=== PATIENT | female | born 1940 | race Caucasian/White ===

== ENCOUNTER → 2016-10-16 | Outpatient (CLI) | payer BC, MEDICARE ==
[2016-10-16 18:19] LABS: Blood Urea Nitrogen 10 mg/dL (7-17); Non-African American GFR(MDRD) >60 (>60 ml/min/1.73 sqM)
--- NOTE | 2016-10-16 18:57 | CT ---
EXAMINATION TYPE: CT chest w con DATE OF EXAM: 10/16/2016 6:48 PM COMPARISON: 12/18/2015 HISTORY: Chest pain x 2 months. Follow-up thoracic aortic aneurysm. CT DLP: 266.10 mGycm Automated exposure control for dose reduction was used. CONTRAST: CT scan of the chest is performed with IV Contrast, patient injected with 100 mL of Omnipaque 300. FINDINGS: The lungs are clear of infiltrate. There is no evidence of a pulmonary mass. There is no pleural effu mau. There is no pericardial effusion. The heart size is normal. There are no hilar masses. There is no mediastinal adenopathy. 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 I see no filling defects in the pulmonary arteries. The bony thorax appears intact. There is spurring in the thoracic spine. IMPRESSION: 4.1 cm aneurysm of the ascending aorta. No evidence of dissection. Aneurysm has increase d by 2 mm since last exam. There is not a significant change.
== END | disposition home or self-care (01) ==
LOC: RADCTMAIN 17:37
PROVIDERS: ATTEND Family Medicine
DX: I71.2 Thoracic aortic aneurysm, without rupture (principal)
CPT/HCPCS: 82565; 84520; 71260; 36415; Q9967

== ENCOUNTER → 2017-02-11 | Outpatient (CLI) | payer MEDICARE ==
--- NOTE | 2017-02-12 22:35 | ECHOF ---
Referral Reason:R53.83 oterh fatigue R60.9 edema MEASUREMENTS -------- HEIGHT: 170.2 cm WEIGHT: 77.6 kg BP: RVIDd: 2.9 cm (< 3.3) IVSd: 1.4 cm (0.6 - 1.1) LVIDd: 3.4 cm (3.9 - 5.3) LVPWd: 1.2 cm (0.6 - 1.1) IVSs: 1.3 cm LVIDs: 2.1 cm LVPWs: 0.8 cm LA Diam: 3.7 cm (2.7 - 3.8) LAESV Index (A-L): 22.00 ml/m MV EXCURSION: 16.312 mm (> 18.000) MV EF SLOPE: 88 mm/s (70 - 150) EPSS: 0.9 cm MV E Trevor: 0.50 m/s MV DecT: 292 ms MV A Trevor: 0.72 m/s MV E/A Ratio: 0.69 RAP: 5.00 mmHg RVSP: 12.37 mmHg FINDINGS -------- Sinus rhythm. This was a technically adequate study. The left ventricular size is normal. There is moderate concentric left ventricular hypertrophy. Overall left ventricular systolic function is low-normal with, an EF between 50 - 55 %. The right ventricle is normal in size. Normal LA size by volume 22+/-6 ml/m2. The right atrial size is normal. There is mild aortic valve sclerosis. There is mild aortic regurgitation. The mitral valve is normal. Mild mitral regurgitation is present. Mild tricuspid regurgitation present. There is no evidence of pulmonary hypertension. The right ventricular systolic pressure, as measured by Doppler, is 12.37mmHg. Trace/mild (physiologic) pulmonic regurgitation. The aortic root size is normal. There is no pericardial effusion. CONCLUSIONS -------- 1. Sinus rhythm. 2. There is no evidence of pulmonary hypertension. 3. Trace/mild (physiologic) pulmonic regurgitation. 4. The aortic root size is normal. 5. There is no pericardial effusion. 6. This was a technically adequate study. 7. There is moderate concentric left ventricular hypertrophy. 8. Overall left ventricular systolic function is low-normal with, an EF between 50 - 55 %. 9. Normal LA size by volume 22+/-6 ml/m2. 10. There is mild aortic valve sclerosis. 11. There is mild aortic regurgitation. 12. Mild mitral regurgitation is present. 13. Mild tricuspid regurgitation present. BATTERY STACKER: Maria Elena Oreilly RDCS
--- NOTE | 2017-02-17 10:03 | P.ARTDOP ---
Arterial Doppler LOWER EXTREMITY ARTERIAL DOPPLER: DATE OF SERVICE: 02/11/2017 Reason for study: Lower extremity edema. Doppler waveforms: Multiphasic bilaterally throughout. Pulse volume recording: Normal configuration. Pressure gradients: None. Ankle-brachial indices: Greater than 1 bilaterally. Toe pressures: 106 on the right, 113 on the left Impression: Normal lower extremity arterial Doppler.
== END | disposition home or self-care (01) ==
LOC: RADECHMAIN 13:50
PROVIDERS: ATTEND Family Medicine
DX: I08.3 Combined rheumatic disorders of mitral, aortic and tricuspid valves (principal); I73.9 Peripheral vascular disease, unspecified
CPT/HCPCS: 93306; 93923

== ENCOUNTER → 2017-09-02 | Outpatient (CLI) | payer MEDICARE ==
[2017-09-02 18:40] LABS: Blood Urea Nitrogen 10 mg/dL (7-17)
--- NOTE | 2017-09-02 19:19 | CT ---
EXAMINATION TYPE: CT chest w con DATE OF EXAM: 09/02/2017 COMPARISON: 10/16/2016 HISTORY: Follow-up thoracic aortic aneurysm. CT DLP: 253.00 mGycm Automated exposure control for dose reduction was used. CONTRAST: CT scan of the chest is performed with IV Contrast, patient injected with 100 mL of Omnipaque 300. FINDINGS: The lungs are clear of infiltrate. There is no evidence of a pulmonary mass. There is no pleural effu mau. There is no mediastinal adenopathy. There are no hilar masses. There is mild aneurysm of the ascendin g aorta that measures 4 cm. There is no evidence of dissection. I see no filling defects in the pulmo nary arteries. There is degenerative spurring in the thoracic spine. I see no bony destructive proces s. IMPRESSION: 4 cm aneurysm of ascending aorta is stable compared to last exam. No evidence of dissect ion. No evidence of pulmonary embolism.
== END | disposition home or self-care (01) ==
LOC: RADCTMAIN 17:58
PROVIDERS: ATTEND Physician Assistant Medical
DX: I71.2 Thoracic aortic aneurysm, without rupture (principal)
CPT/HCPCS: 82565; 84520; 71260; 36415; Q9967